=== PATIENT | male | born 1940 | race Caucasian/White ===

== ENCOUNTER 2022-04-02 07:43 | Observation (INO) | payer MEDICARE, BC, SELFPAY ==
[2022-04-02] VITALS (13 sets, daily range): BP systolic 129–180; BP diastolic 67–81; PULSE 54–81; RESP 10–19; TEMP 36.3–36.6; O2SAT 95–100; BMI 29.2
--- NOTE | 2022-04-02 07:59 | W.ED.NEUROSD ---
HPI - Neuro Symptoms/Deficit General: Chief Complaint: Neuro Symptoms/Deficit Stated Complaint: stroke like symtoms Time Seen by Provider: 04/02/22 07:59 History of Present Illness: 81-year-old male presenting today with right-sided weakness. Patient notes sudden onset of right weakness 1 hour before arrival. Patient was recently diagnosed with a stroke 20 days ago. Had right-sided weakness at that time. He notes this is a return if not worsening of that same weakness. During interview patient notes his symptoms have almost completely resolved. And he is returned to baseline. Review of Systems General: Reports: 10 or more systems reviewed and unremarkable except in HPI and below Physical Exam Const: COMMON NORMALS: no acute distress, patient oriented x3 and alert GENERAL APPEARANCE: cooperative ORIENTATION/CONSCIOUSNESS: Yes awake, Yes oriented to person, Yes oriented to place and Yes oriented to time HENMT: COMMON NORMALS: normocephalic, atraumatic, external ears normal, Normal external nose present and moist oral mucous membranes HEAD & SCALP: normal to inspection, normocephalic and atraumatic NOSE: Normal external nose present GENERAL EAR: hearing grossly impaired EXTERNAL EAR: Yes external ears normal Eye: COMMON NORMALS: Equal, round and reactive pupils present, EOMs intact bilaterally, conjunctivae normal and no scleral icterus GENERAL EYE: appearance normal, both eyes and all related structures EYELID: eyelids normal CONJUNCTIVA: Yes conjunctivae normal SCLERA: sclerae normal PUPIL: Yes Equal, round and reactive pupils present Neck/C-Spine: COMMON NORMALS: full ROM, supple and no JVD GENERAL: Yes normal visual inspection Lymph: LYMPHATIC: no lymphadenopathy noted and no lymphedema noted Chest: COMMONS NORMALS: normal inspection of the chest Resp: COMMON NORMALS: normal respiratory effort, No retractions and No use of accessory muscles Cardio: COMMON NORMALS: no JVD, regular rate and regular rhythm RATE: regular rate RHYTHM: regular rhythm GI: COMMON NORMALS: Normal to inspection, nondistended, normoactive bowel sounds present : COMMON NORMALS: Yes no CVA tenderness BLADDER/KIDNEY EXAM: Yes no CVA tenderness Back/Pelvis: COMMON NORMALS: no CVA tenderness and thoracic and lumbar spine normal to inspection Extremity: COMMON NORMALS: normal to inspection, full ROM and capillary refill normal GENERAL: Yes normal exam except as noted Neuro: COMMON NORMALS: patient oriented x3, CN's II-XII intact bilaterally, moves all extremities (4-5 strength in upper lower extremities and the right side), no focal motor deficits, no sensory deficits noted and gait normal SENSORIUM/ORIENTATION: Yes alert, Yes oriented to person, Yes oriented to place and Yes oriented to time Psych: COMMON NORMALS: mental status grossly normal, Normal thought process present, cooperative and normal affect THOUGHT PROCESS: Normal thought process present Skin: COMMON NORMALS: no rashes or lesions noted and no wounds GENERAL SKIN EXAM: no rashes or lesions noted Course Vital Signs: Vital signs: Vital Signs Temperature 97.4 F L 04/02/22 07:45 Pulse Rate 81 04/02/22 07:45 Respiratory Rate 18 04/02/22 07:45 Blood Pressure 180/80 04/02/22 07:45 Pulse Oximetry 99 04/02/22 07:45 Oxygen Delivery Me thod 04/02/22 07:45 MDM - Neuro Symptoms/Deficit Medical Decision Making 81-year-old male presenting today with right-sided weakness. Patient with hard contraindication of stroke including prior stroke in last 3 months. Patient is not a candidate for thrombolytic at this time. CTA head and neck without acute thrombus or embolus. Patient with rapidly resolving symptoms. Spoke to neurology on-call. Who recommended admission to the hospital for observation. Neurology concerned about a possible TIA. Lab Data : 04/02/22 08:10 04/02/22 08:10 Radiology Impressions Head/Neck CTA 04/02/22 08:00 IMPRESSION: No intracranial large vessel stenosis or occlusion. IMPRESSION: No significant stenosis or occlusion seen on the CTA of the neck. Right dominant vertebral artery. REFERENCES: NASCET CRITERIA. The degree of stenosis in the cervical segment of the internal carotid artery is based on NASCET criteria. Normal is no stenosis. Mild is less than 50% stenosis. Moderate is 50-69% stenosis. Severe is 70% to 99% stenosis. Total occlusion is no detectable patent lumen. Laboratory Results WBC 7.8 10^3/uL (4.0-10.0) 04/02/22 08:10 RBC 4.34 10^6/uL (4.1-5.3) 04/02/22 08:10 Hgb 11.4 g/dL (11.7-16.6) L 04/02/22 08:10 Hct 37.1 % (42.0-52.0) L 04/02/22 08:10 MCV 85.5 fl (80-94) 04/02/22 08:10 MCH 26.3 pg (28.0-34.0) L 04/02/22 08:10 MCHC 30.7 g/dL (30.0-36.0) 04/02/22 08:10 RDW 15.7 % (12.1-15.1) H 04/02/22 08:10 Plt Count 339 10^3/cmm (130-400) 04/02/22 08:10 MPV 10.3 fL (7.4-10.4) 04/02/22 08:10 Neut % (Auto) 72.8 % 04/02/22 08:10 Lymph % (Auto) 17.0 % 04/02/22 08:10 [place] % (Auto) 7.5 % 04/02/22 08:10 Eos % (Auto) 1.9 % 04/02/22 08:10 Baso % (Auto) 0.5 % 04/02/22 08:10 Neut # (Auto) 5.71 10^3/uL (1.8-7.7) 04/02/22 08:10 Lymph # (Auto) 1.3 10^3/uL (0.8-4.8) 04/02/22 08:10 [place] # (Auto) 0.6 10^3/uL (0.2-0.9) 04/02/22 08:10 Eos # (Auto) 0.2 10^3/uL (0.0-0.8) 04/02/22 08:10 Baso # (Auto) 0.0 10^3/uL (0.0-0.1) 04/02/22 08:10 Nucleated RBC % (auto) 0 % 04/02/22 08:10 Nucleated RBCs # 0.0 /100WBC 04/02/22 08:10 PT 12.80 SECONDS (12.1-14.9) 04/02/22 08:10 INR 0.93 (0.8-1.2) 04/02/22 08:10 APTT 27.4 SECONDS (23.9-36.7) 04/02/22 08:10 Sodium 140 mmol/L (136-145) 04/02/22 08:10 Potassium 4.8 mmol/L (3.5-5.1) 04/02/22 08:10 Chloride 105 mmol/L (98-107) 04/02/22 08:10 Carbon Dioxide 24 mmol/L (22-29) 04/02/22 08:10 Anion Gap 15.8 (5-19) 04/02/22 08:10 BUN 19 mg/dL (8-23) 04/02/22 08:10 Creatinine 0.9 mg/dL (0.7-1.2) 04/02/22 08:10 GFR Calculation Not Reportable 04/02/22 08:10 Glucose 140 mg/dL (65-115) H 04/02/22 08:10 POC Glucose 139 mg/dL (70-110) H 04/02/22 08:10 Calculated Osmolality 295 mOsm/kg (285-295) 04/02/22 08:10 Calcium 8.7 mg/dL (8.5-10.5) 04/02/22 08:10 Total Bilirubin 0.3 mg/dL (0.15-1.2) 04/02/22 08:10 AST 18 U/L (0-40) 04/02/22 08:10 ALT 11 U/L (0-41) 04/02/22 08:10 Alkaline Phosphatase 97 U/L (40-130) 04/02/22 08:10 Total Protein 6.3 g/dL (6.6-8.7) L 04/02/22 08:10 Albumin 3.7 g/dL (3.5-5.2) 04/02/22 08:10 Globulin 2.6 g/dL (1.3-4.6) 04/02/22 08:10 Urine Color Yellow (Yellow) 04/02/22 09: Urine Appearance Clear (CLEAR) 04/02/22 09:22 Urine pH 5 (5-7) 04/02/22 09:22 Ur Specific [place] 1.015 (1.005-1.030) 04/02/22 09:22 Urine Protein Neg (Negative) 04/02/22 09:22 Urine Glucose (UA) Norm (Normal) 04/02/22 09:22 Urine Ketones Negative (Negative) 04/02/22 09:22 Urine Blood Neg (Negative) 04/02/22 09:22 Urine Nitrate Negative (Negative) 04/02/22 09:22 Urine Bilirubin Neg (Negative) 04/02/22 09:22 Urine Urobilinogen Norm mg/dL (Negative) 04/02/22 09:22 Ur Leukocyte Esterase Negative (Negative) 04/02/22 09:22 Discharge Plan Discharge Patient Disposition: Admitted As Inpatient Clinical Impression: Brain TIA Condition: Stable Coding Level of Care Code ED Operations Support Analyst for Conrad Fwjcarlos Exam Comprehensive
--- NOTE | 2022-04-02 08:00 | CTR_ITS ---
PROCEDURE INFORMATION: Exam: CTA Head With Contrast, Arteriography Exam date and time: 04/02/2022 8:14 AM Age: 81 years old Clinical indication: Stroke-like symptoms; RT upper extremity weakness; Additional info: Acute weakness TECHNIQUE: Imaging protocol: Computed tomographic angiography of the head with contrast. Exam focused on the arteries. 3D rendering (Not supervised by radiologist): MIP and/or 3D reconstructed images were created by the technologist. Radiation optimization: All CT scans at this facility use at least one of these dose optimization techniques: automated exposure control; mA and/or kV adjustment per patient size (includes targeted exams where dose is matched to clinical indication); or iterative reconstruction. Contrast material: OMNI 350; Contrast volume: 95 ml; Contrast route: INTRAVENOUS (IV); COMPARISON: No relevant prior studies available. RADIATION DOSE METRICS: Total DLP (mGy-cm): 581 FINDINGS: ANTERIOR CIRCULATION: Right internal carotid artery: Unremarkable. Intracranial segment is patent with no significant stenosis. No aneurysm. Right middle cerebral artery: Unremarkable. No occlusion or significant stenosis. No aneurysm. Right anterior cerebral artery: Unremarkable. No occlusion or significant stenosis. No aneurysm. Left internal carotid artery: Unremarkable. Intracranial segment is patent with no significant stenosis. No aneurysm. Left middle cerebral artery: Unremarkable. No occlusion or significant stenosis. No aneurysm. Left anterior cerebral artery: Unremarkable. No occlusion or significant stenosis. No aneurysm. POSTERIOR CIRCULATION: Right vertebral artery: Unremarkable. No occlusion or significant stenosis. No aneurysm. Left vertebral artery: Unremarkable. No occlusion or significant stenosis. No aneurysm. Basilar artery: Unremarkable. No occlusion or significant stenosis. No aneurysm. Right posterior cerebral artery: Unremarkable. No occlusion or significant stenosis. No aneurysm. Left posterior cerebral artery: Unremarkable. No occlusion or significant stenosis. No aneurysm. Brain: No definite mass, mass effect, or midline shift. No abnormal post contrast enhancement. Cerebral ventricles: No ventriculomegaly. Bones/joints: No acute fracture. Soft tissues: Unremarkable. The paranasal sinuses are clear. PROCEDURE INFORMATION: Exam: CTA Neck With Contrast Exam date and time: 04/02/2022 8:14 AM Age: 81 years old Clinical indication: Stroke-like symptoms; RT upper extremity weakness; Additional info: Acute weakness TECHNIQUE: Imaging protocol: Computed tomographic angiography of the neck with contrast. 3D rendering (Not supervised by radiologist): MIP and/or 3D reconstructed images were created by the technologist. Radiation optimization: All CT scans at this facility use at least one of these dose optimization techniques: automated exposure control; mA and/or kV adjustment per patient size (includes targeted exams where dose is matched to clinical indication); or iterative reconstruction. Contrast material: OMNI 350; Contrast volume: 95 ml; Contrast route: INTRAVENOUS (IV); COMPARISON: No relevant prior studies available. RADIATION DOSE METRICS: Total DLP (mGy-cm): 581 FINDINGS: Right common carotid artery: No stenosis. No dissection or occlusion. Right internal carotid artery: [id number] calcified bulb plaque. No stenosis of the extracranial segment. No dissection or occlusion. Right external carotid artery: No occlusion or stenosis of the origin. Left common carotid artery: No stenosis. No dissection or occlusion. Left internal carotid artery: Xfjy-ri-[place] calcified bulb plaque. No stenosis of the extracranial segment. No dissection or occlusion. Left external carotid artery: No occlusion or stenosis of the origin. Right vertebral artery: Right dominant vertebral artery is seen. No stenosis. No dissection or occlusion. Left vertebral artery: No stenosis. No dissection or occlusion. Other: The visualized subclavian arteries are patent. Soft tissues: Normal. No significant soft tissue swelling. Bones/joints: No acute fracture. The patient is edentulous. CT/CT angio headneck* [id number] IMPRESSION: No intracranial large vessel stenosis or occlusion. IMPRESSION: No significant stenosis or occlusion seen on the CTA of the neck. Right dominant vertebral artery. REFERENCES: NASCET CRITERIA. The degree of stenosis in the cervical segment of the internal carotid artery is based on NASCET criteria. Normal is no stenosis. Mild is less than 50% stenosis. Moderate is 50-69% stenosis. Severe is 70% to 99% stenosis. Total occlusion is no detectable patent lumen.
--- NOTE | 2022-04-02 08:00 | ECG_ITS ---
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 Measurements Intervals [place] Rate: 62 P: 61 NM: 229 QRS: 62 QRSD: 90 T: 76 QT: 408 QTc: 415 Interpretive Statements SINUS RHYTHM WITH FIRST DEGREE AV BLOCK No previous ECG available for comparison Electronically Signed On 04-02-2022 13:03:03 CDT by Lupe Ruano M.D. [id number]
[2022-04-02 08:15] LABS: Glucose Point of Care 139 mg/dL (70-110)
[2022-04-02 08:21] LABS: Basophils % 0.5 %; Eosinophils # 0.2 10^3/uL (0.0-0.8); Eosinophils % 1.9 %; Hematocrit 37.1 % (42.0-52.0); Hemoglobin 11.4 g/dL (11.7-16.6); Lymphocytes # 1.3 10^3/uL (0.8-4.8); Mean Corpuscular HGB Conc 30.7 g/dL (30.0-36.0); Mean Corpuscular Hemoglobin 26.3 pg (28.0-34.0); Mean Corpuscular Volume 85.5 fl (80-94); Mean Platelet Volume 10.3 fL (7.4-10.4); Monocytes # 0.6 10^3/uL (0.2-0.9); Monocytes % 7.5 %; Neutrophils # 5.71 10^3/uL (1.8-7.7); Neutrophils % 72.8 %; Nucleated Red Blood Cells % 0 %; Platelet Count 339 10^3/cmm (130-400); Red Blood Count 4.34 10^6/uL (4.1-5.3); Red Cell Distribution Width 15.7 % (12.1-15.1); White Blood Count 7.8 10^3/uL (4.0-10.0)
[2022-04-02] MEDS: iohexol 350 mg/mL 100 mL Btl IV (08:29)
[2022-04-02 08:34] LABS: INR 0.93 (0.8-1.2)
[2022-04-02 08:35] LABS: Partial Thromboplastin Time 27.4 SECONDS (23.9-36.7)
[2022-04-02 08:43] LABS: Alanine Aminotransferase 11 U/L (0-41); Albumin Level 3.7 g/dL (3.5-5.2); Alkaline Phosphatase 97 U/L (40-130); Anion Gap 15.8 (5-19); Aspartate Amino Transferase 18 U/L (0-40); Blood Urea Nitrogen 19 mg/dL (8-23); Calcium 8.7 mg/dL (8.5-10.5); Carbon Dioxide 24 mmol/L (22-29); Chloride 105 mmol/L (98-107); Globulin 2.6 g/dL (1.3-4.6); Glucose 140 mg/dL (65-115); Osmolality Calculated 295 mOsm/kg (285-295); Potassium 4.8 mmol/L (3.5-5.1); Sodium 140 mmol/L (136-145); Total Bilirubin 0.3 mg/dL (0.15-1.2); Total Protein 6.3 g/dL (6.6-8.7)
[2022-04-02 09:31] LABS: Add Urine Microscopic? NO; Charge for UA Resulting for Rev
[2022-04-02 09:41] LABS: Bilirubin Urine Neg (Negative); Blood Urine Neg (Negative); Glucose Urine UA Norm (Normal); Ketones Urine Negative (Negative); Leukocyte Esterase Urine Negative (Negative); Nitrate Urine Negative (Negative); Protein Urine Neg (Negative); Specific Gravity, Urine 1.015 (1.005-1.030); Urine Appearance Clear (CLEAR); Urine Color Yellow (Yellow); Urobilinogen Urine Norm (Negative); pH Urine 5 (5-7)
[2022-04-02 09:47] LABS: Amphetamines Screen Urine Negative (Negative); Barbiturates Screen Urine Negative (Negative); Benzodiazepines Screen Urine Negative (Negative); Cocaine Screen Urine Negative (Negative); Opiate Screen Urine Negative (Negative); PCP Screen Urine Negative (Negative); THC Screen Urine Negative (Negative)
--- NOTE | 2022-04-02 12:15 | USCV_ITS ---
Joshua Walton Age: 81 Gender: M : 1940 Exam Date: 04/02/2022 13:16 Ordering Phys: Rene Giron MD Technologist: Yolanda Nova Exam Location: [facility] – [place] Indication: TIA BP: 166 / 81 HR: 56 Rhythm: Sinus Technical Quality: Adequate MEASUREMENTS (Male / Female) Normal Values 2D ECHO LV Diastolic Diameter PLAX 3.7 cm 4.2 - 5.9 / 3.9 - 5.3 cm LV Systolic Diameter PLAX 1.8 cm LV Chamber Size 3.3 cm IVS Diastolic Thickness 1.5 cm 0.6 - 1.0 / 0.6 - 0.9 cm IVS Systolic Thickness 1.2 cm LVPW Diastolic Thickness 1.3 cm 0.6 - 1.0 / 0.6 - 0.9 cm LVPW Systolic Thickness 1.6 cm RV Chamber Size 2.0 cm LVOT Diameter 2.1 cm LV Ejection Fraction 2D Teich 83.0 % LV Ejection Fraction MOD 2C 52.3 % LV Ejection Fraction 2C AL 59.0 % LA Diameter 4.1 cm LA Width 2.4 cm LA Height 3.7 cm RA Width 2.7 cm RA Height 3.7 cm Aorta at Sinotubular Diameter 2.9 cm IVC Diameter 1.3 cm M-MODE Aortic Annulus Diameter 3.4 cm LA Ao Ratio MM 1.6 MV E Point Septal Separation 0.5 cm DOPPLER AV Peak Velocity 104.0 cm/s LVOT Peak Velocity 81.0 cm/s AV Area Cont Eq vti 3.1 cm squared AV Area Cont Eq pk 2.6 cm squared MV Area PHT 2.4 cm squared Mitral E to A Ratio 1.1 MV E' Velocity 115.0 cm/s TR Peak Velocity 269.4 cm/s TR Peak Gradient 29.0 mmHg TR Mean Velocity 204.9 cm/s TR Mean Gradient 18.7 mmHg TR Velocity Time Integral 110.3 cm TV Peak E Velocity 50.0 cm/s Right Atrial Pressure 3.0 mmHg Pulmonary Artery Systolic Pressu 32.0 mmHg PV Peak Velocity 76.0 cm/s RV Acceleration Time 0.4 s RV Ejection Time 0.2 s RV AcT/ET 2.4 FINDINGS Left Ventricle Normal left ventricular size, systolic function and wall thickness, with no regional wall motion abnormalities. Left ventricular ejection fraction is estimated at 60 -65 %. Normal diastolic filling pattern. Right Ventricle Normal right ventricular size and systolic function. Right ventricular systolic pressure 34 mmHg. Right Atrium Normal right atrial size. Left Atrium Normal left atrial size. Mitral Valve Moderate mitral annular calcification. No mitral valve stenosis. Trace mitral valve regurgitation. Aortic Valve Structurally normal trileaflet aortic valve. No aortic valve stenosis. No aortic valve regurgitation. Tricuspid Valve Structurally normal tricuspid valve. No tricuspid valve stenosis. Trace tricuspid valve regurgitation. Pulmonic Valve Structurally normal pulmonic valve. No pulmonary valve stenosis. Trace pulmonary valve regurgitation. Pericardium No pericardial effusion. Aorta Normal size aortic root and proximal ascending aorta. IVC Normal IVC dimension with >50% respiratory change of the inferior vena cava. CONCLUSIONS 1. Normal left ventricular size, systolic function and wall thickness, with no regional wall motion abnormalities. Left ventricular ejection fraction is estimated at 60 -65 %. Normal diastolic filling pattern. 2. Normal right ventricular size and systolic function. 3. Upper normal pulmonary artery pressure. 4. Trace mitral and tricuspid valve regurgitation. 5. No prior similar studies to compare. Lupe Ruano MD (Electronically Signed) Final Date: 03 April 2022 13:21 S
--- NOTE | 2022-04-02 12:34 | P.HP_ITS ---
Providers/Chief Complaint Admitting Physician: Rene Giron MD Chief Complaint: stroke like symtoms History of Present Illness Joshua Walton is a 81 year old male with past medical history of hypertension diabetes, history of recent CVA, with minimal residual right-sided weakness, came in today with chief complaint of acute onset of Profound right-sided weakness, 1 hour prior to arrival to the ER, when he was examined in the ER at that time weakness had completely resolved.He was not a tPA candidate. When I examined the patient there was no gross motor or sensory deficit.Speech was normal, denied any difficulty swallowing Pertinent imaging studies done in the ER includes: CT head without contrast: No acute intracranial pathology CTA head and neck: No flow-limiting stenosis seen EKG: SR with first-degree AV block Pertinent labs: WBC 7.8, H&H 11 and 37, PLT : 339 , serum sodium 140, serum potassium 4.8, BUN and serum creatinine 19 and 0.9, random blood sugar 140, Review of Systems General: Reports: 10 or more systems reviewed and unremarkable except in HPI and below Const: Denies: fever(s), chills, body aches, change in appetite or diaphoresis Card: Denies: palpitations, edema, swelling of feet/ankles, dyspnea on exertion, orthopnea or leg pain with exertion Resp: Denies: dyspnea, productive cough, wheezing or pain on inspiration GI: Denies: abdominal pain, nausea, vomiting, diarrhea or constipation : Denies: flank pain or difficulty urinating Musc: Denies: back pain, extremity pain or extremity swelling Neuro: Denies: headache(s), difficulty walking or confusion Medications/Allergies Home Medications Medication Instructions Recorded Confirmed Last Taken Type aspirin 81 mg chewable tablet 81 mg PO DAILY 04/02/22 04/02/22 04/02/22 History atorvastatin 80 mg tablet 80 mg PO DAILY 04/02/22 04/02/22 04/01/22 History clopidogrel 75 mg tablet 75 mg PO DAILY 04/02/22 04/02/22 04/02/22 History furosemide 20 mg tablet 20 mg PO DAILY 04/02/22 04/02/22 04/02/22 History glipizide 5 mg tablet See Rx Instructions .Route .COMPLEX 04/02/22 04/02/22 04/02/22 History insulin NPH isoph U-100 human 100 See Rx Instructions .Route .COMPLEX 04/02/22 04/02/22 04/02/22 History unit/mL subcutaneous suspension (Humulin N NPH U-100 Insulin (isophane susp)) lisinopril 10 mg tablet 10 mg PO DAILY 04/02/22 04/02/22 04/02/22 History metformin 500 mg tablet,extended 1,000 mg PO BID 04/02/22 04/02/22 04/02/22 History release 24 hr Allergies Allergy/AdvReac Type Severity Reaction Status Date / Time No Known Allergies Allergy Verified 04/02/22 07:45 Vitals/I&O/Wt Last Vital Signs Temp 97.4 F L 04/02/22 07:45 Pulse 65 04/02/22 12:00 Resp 18 04/02/22 12:00 BP 166/81 04/02/22 12:00 Pulse Ox 99 04/02/22 12:00 O2 Del Method 04/02/22 07:45 Weight last 48 hrs Weight 87.09 kg Physical Exam Const: COMMON NORMALS: patient oriented x3 HENMT: COMMON NORMALS: normocephalic and atraumatic HEAD & SCALP: normocephalic and atraumatic Chest: CHEST: Yes Symmetrical chest wall rise Resp: COMMON NORMALS: normal respiratory effort, No retractions, No use of accessory muscles and clear to auscultation bilaterally EFFORT & INSPECTION: Yes symmetric chest movement AUSCULTATION: clear to auscultation bilaterally Cardio: COMMON NORMALS: regular rate, regular rhythm, S1 normal heart sound present, S2 normal heart sound present, No gallops present (Cardio), No murmurs present (Cardio), No rub (Cardio) and Peripheral pulses 2+ throughout RATE: regular rate RHYTHM: regular rhythm HEART SOUNDS: S1 normal heart sound present and S2 normal heart sound present PERIPHERAL PULSES: Peripheral pulses 2+ throughout GI: COMMON NORMALS: Normal to inspection, nondistended, normoactive bowel sounds present, Soft to palpation, non-tender, No hepatosplenomegaly present and no masses AUSCULTATION: Yes normoactive bowel sounds PALPATION: Yes Soft to palpation and Yes No hepatosplenomegaly present RECTAL EXAM: Yes deferred Extremity: COMMON NORMALS: no clubbing, cyanosis or edema and no pedal edema Neuro: COMMON NORMALS: patient oriented x3 Data : 04/02/22 08:10 04/02/22 08:10 A&P Assessment and plan (1) TIA (transient ischemic attack): Status: Acute Plan Joshua Walton is a 81 year old male with past medical history of hypertension diabetes, history of recent CVA, with minimal residual right-sided weakness, came in today with chief complaint of acute onset of Profound right-sided weakness, 1 hour prior to arrival to the ER, when he was examined in the ER at that time weakness had completely resolved.He was not a tPA candidate. When I examined the patient there was no gross motor or sensory deficit.Speech was normal, denied any difficulty swallowing. Assessment: TIA History of CVA Hypertension Diabetes Plan: Follow 2D echo Continue telemetry monitoring Continue aspirin Plavix statin Permissive hypertension PT OT speech evaluation Patient will need event monitor on discharge, to rule out possibility of unde rlying A. fib. Continue low-dose sliding scale insulin, monitor fingerstick glucose, carbohydrate consistent diet. CODE STATUS: Full code DVT prophylaxis: On Lovenox Attestations Medical Necessity Statement*: Patient is to be in hospital for management of TIA. Coding Level of Care Code Acute Electrogalvanizing Machine Operator for Conrad Fwd Exam Comprehensive Diagnoses TIA (transient ischemic attack) G45.9
[2022-04-02] MEDS: aspirin 81 mg Chew Tablet PO (13:06)
[2022-04-02 16:48] LABS: Glucose Point of Care 189 mg/dL (70-110)
[2022-04-02] MEDS: insulin lispro 100 unit/1 mL SUBCUT (18:07)
[2022-04-02 21:39] LABS: Glucose Point of Care 281 mg/dL (70-110)
[2022-04-03] VITALS (7 sets, daily range): BP systolic 122–193; BP diastolic 66–96; PULSE 64–72; RESP 12–18; TEMP 36.6–36.8; O2SAT 95–97
[2022-04-03 05:33] LABS: Basophils # 0.1 10^3/uL (0.0-0.1); Basophils % 0.7 %; Eosinophils # 0.2 10^3/uL (0.0-0.8); Eosinophils % 2.6 %; Hematocrit 37.3 % (42.0-52.0); Hemoglobin 11.3 g/dL (11.7-16.6); Lymphocytes # 1.5 10^3/uL (0.8-4.8); Lymphocytes % 20.7 %; Mean Corpuscular HGB Conc 30.3 g/dL (30.0-36.0); Mean Corpuscular Volume 85.7 fl (80-94); Mean Platelet Volume 10.3 fL (7.4-10.4); Monocytes # 0.6 10^3/uL (0.2-0.9); Monocytes % 8.6 %; Neutrophils # 4.69 10^3/uL (1.8-7.7); Nucleated Red Blood Cells % 0 %; Platelet Count 310 10^3/cmm (130-400); Red Blood Count 4.35 10^6/uL (4.1-5.3); Red Cell Distribution Width 15.6 % (12.1-15.1)
[2022-04-03 05:44] LABS: INR 0.98 (0.8-1.2)
[2022-04-03 05:45] LABS: Partial Thromboplastin Time 27.6 SECONDS (23.9-36.7)
[2022-04-03] MEDS: enoxaparin 40 mg/0.4 mL Syringe SUBCUT (06:02)
[2022-04-03 06:05] LABS: Alanine Aminotransferase 10 U/L (0-41); Albumin Level 3.6 g/dL (3.5-5.2); Alkaline Phosphatase 87 U/L (40-130); Anion Gap 11.4 (5-19); Aspartate Amino Transferase 15 U/L (0-40); Blood Urea Nitrogen 19 mg/dL (8-23); Calcium 8.7 mg/dL (8.5-10.5); Carbon Dioxide 27 mmol/L (22-29); Chloride 105 mmol/L (98-107); Globulin 2.7 g/dL (1.3-4.6); Glucose 214 mg/dL (65-115); Magnesium 1.7 mg/dL (1.7-2.3); Osmolality Calculated 297 mOsm/kg (285-295); Potassium 4.4 mmol/L (3.5-5.1); Sodium 139 mmol/L (136-145); Thyroid Stimulating Hormone 1.38 uIU/mL (0.27-4.20); Total Bilirubin 0.2 mg/dL (0.15-1.2); Total Protein 6.3 g/dL (6.6-8.7)
[2022-04-03 06:21] LABS: Glucose Point of Care 204 mg/dL (70-110)
[2022-04-03] MEDS: insulin lispro 100 unit/1 mL SUBCUT ×2 (08:33→12:04)
[2022-04-03] MEDS: clopidogrel 75 mg Tablet PO (08:33)
[2022-04-03] MEDS: atorvastatin 40 mg Tablet 80 MG PO (08:33)
[2022-04-03] MEDS: aspirin 81 mg Chew Tablet PO (08:34)
--- NOTE | 2022-04-03 11:03 | PC.CHAP ---
Pastoral Care Encounter/Spiritual Assessment Type of Contact [] Declined artificial stone setter visit [] Patient/Family/Request visit [] Outpatient visit [] Follow-up visit [] Physician referral [] Code/Alert [x] Routine visit [] Staff referral [] Actively dying [] Patient sleeping [] Family support [] [] Out of room [] Palliative care [] [x] Receiving care in room [] Pre-surgical visit [] Trauma [] Long length of stay [] ICU visit [] Other: Relational/Emotional Strength [] Patient feels connected with others/family/visitors/staff [] Distress [] Loneliness/isolation [] Abandonment Spirituality of Patient [] Person of [place] [] Attends Jainism of their [place] [] Believes in Prayer [] Reads Bible or Jain materials [] There are Spiritual issues to be addressed Sample Checker Interventions [] Prayer [] Active listening [] Non-anxious presence [] Spiritual/emotional support [] Crisis/trauma care [] Spiritual counseling [] Bereavement support [] Provided bereavement packet [] Provided Bible/devotional materials [] Provided toy/stuffed animal, coloring book to patient or family member [] Provided Communion [] Anointing/[place] [] Salvation [] Completed spiritual assessment [] Other: Impact on Illness or Injury [] Angry [] Fearful [] Anxious [] Often cries [] Exhaustion [] Unable to work [] Unable to attend spiritism [] Unable to walk/stand [] Unable to read [] Unable to drive [] Unable to eat/drink [] Unable to sleep [] Unable to be with family [] Patient intubated [] Other: Summary Time spent with patient
--- NOTE | 2022-04-03 11:11 | PC.OT ---
Pt. refused OT treatment today, stating he would work after Labor Day. C/o being tired from going to CT scan.
[2022-04-03 11:39] LABS: Glucose Point of Care 324 mg/dL (70-110)
[2022-04-03] MEDS: lisinopril 10 mg Tablet PO (13:04)
[2022-04-03] MEDS: FUROsemide 20 mg Tablet PO (13:04)
--- NOTE | 2022-04-03 13:12 | P.DS_ITS ---
Discharge Providers Date of Admission: 04/02/22 12:09 Date of Discharge: April 03, 2022 Attending Provider at Admission: Rene Giron MD Attending Provider at Discharge: Gautam Alcantara MD Diagnoses at Discharge Discharge Diagnosis (1) TIA (transient ischemic attack): Details from hospital stay: Symptoms resolved Status: Acute (2) Diabetes: Details from hospital stay: Glipizide was not given on admission and blood sugars have been high. Resume glipizide at home dose. Hold metformin until 04/04/2022 due to contrast study Status: Acute (3) Hypertension: Details from hospital stay: Increase lisinopril to 10 mg twice a day Status: Acute (4) Hyperlipidemia associated with type 2 diabetes mellitus: Details from hospital stay: Resume atorvastatin Status: Acute Reason for Visit Reason for Visit: stroke like symtoms Brief History: Patient came in with TIA symptoms which basically resolved prior to leaving the ER. Hospital Course Hospital Course Patient has not had any more TIA symptoms however his lisinopril was not continued due to initial desire for permissive hypertension. Additionally his metformin held due to contrast study. He had a lower blood sugar so his glipizide was not continued but was restarted today due to elevated blood sugar. He is anxious to go home today. I have asked the nurse to give him lisinopril 10 mg now and we will discharge him provided he is still doing well and blood sugar is below 175 systolic prior to discharge Physical Exam Narrative: General well-developed well-nourished male in no acute cardiopulmonary stress CV regular rate and rhythm Lungs clear to auscultation bilateral Abdomen positive bowel sounds soft nontender Calves no tenderness cords pedal edema Motor strength 5/5 bilateral biceps triceps handgrips and straight leg lifting Discharge Data Studies Completed and Pending Completed Studies During Hospitalization Category Date Time Status CT angio headneck* [id number] Stat Cat Scan 04/02/22 08:00 Completed Pending at discharge Category Date Time Status Complete Blood Count w/Auto AM LABS Lab 04/04/22 04:00 Ordered Complete Blood Count w/Auto AM LABS Lab 04/05/22 04:00 Ordered Comprehensive Metabolic Panel AM LABS Lab 04/04/22 04:00 Ordered Comprehensive Metabolic Panel AM LABS Lab 04/05/22 04:00 Ordered CV. echo complete* [id number] Routine Ultrasound 04/02/22 12:15 Taken Radiology Impressions Head/Neck CTA 04/02/22 08:00 IMPRESSION: No intracranial large vessel stenosis or occlusion. IMPRESSION: No significant stenosis or occlusion seen on the CTA of the neck. Right dominant vertebral artery. REFERENCES: NASCET CRITERIA. The degree of stenosis in the cervical segment of the internal carotid artery is based on NASCET criteria. Normal is no stenosis. Mild is less than 50% stenosis. Moderate is 50-69% stenosis. Severe is 70% to 99% stenosis. Total occlusion is no detectable patent lumen. Laboratory Results WBC 7.0 10^3/uL (4.0-10.0) 04/03/22 05:05 RBC 4.35 10^6/uL (4.1-5.3) 04/03/22 05:05 Hgb 11.3 g/dL (11.7-16.6) L 04/03/22 05:05 Hct 37.3 % (42.0-52.0) L 04/03/22 05:05 MCV 85.7 fl (80-94) 04/03/22 05:05 MCH 26.0 pg (28.0-34.0) L 04/03/22 05:05 MCHC 30.3 g/dL (30.0-36.0) 04/03/22 05:05 RDW 15.6 % (12.1-15.1) H 04/03/22 05:05 Plt Count 310 10^3/cmm (130-400) 04/03/22 05:05 MPV 10.3 fL (7.4-10.4) 04/03/22 05:05 Neut % (Auto) 67.0 % 04/03/22 05:05 Lymph % (Auto) 20.7 % 04/03/22 05:05 [place] % (Auto) 8.6 % 04/03/22 05:05 Eos % (Auto) 2.6 % 04/03/22 05:05 Baso % (Auto) 0.7 % 04/03/22 05:05 Neut # (Auto) 4.69 10^3/uL (1.8-7.7) 04/03/22 05:05 Lymph # (Auto) 1.5 10^3/uL (0.8-4.8) 04/03/22 05:05 [place] # (Auto) 0.6 10^3/uL (0.2-0.9) 04/03/22 05:05 Eos # (Auto) 0.2 10^3/uL (0.0-0.8) 04/03/22 05:05 Baso # (Auto) 0.1 10^3/uL (0.0-0.1) 04/03/22 05:05 Nucleated RBC % (auto) 0 % 04/03/22 05:05 Nucleated RBCs # 0.0 /100WBC 04/03/22 05:05 PT 13.30 SECONDS (12.1-14.9) 04/03/22 05:05 INR 0.98 (0.8-1.2) 04/03/22 05:05 APTT 27.6 SECONDS (23.9-36.7) 04/03/22 05:05 Sodium 139 mmol/L (136-145) 04/03/22 05:05 Potassium 4.4 mmol/L (3.5-5.1) 04/03/22 05:05 Chloride 105 mmol/L (98-107) 04/03/22 05:05 Carbon Dioxide 27 mmol/L (22-29) 04/03/22 05:05 Anion Gap 11.4 (5-19) 04/03/22 05:05 BUN 19 mg/dL (8-23) 04/03/22 05:05 Creatinine 0.9 mg/dL (0.7-1.2) 04/03/22 05:05 GFR Calculation Not Reportable 04/03/22 05:05 Glucose 214 mg/dL (65-115) H 04/03/22 05:05 POC Glucose 324 mg/dL (70-110) H 04/03/22 11:10 Calculated Osmolality 297 mOsm/kg (285-295) H 04/03/22 05:05 Calcium 8.7 mg/dL (8.5-10.5) 04/03/22 05:05 Magnesium 1.7 mg/dL (1.7-2.3) 04/03/22 05:05 Total Bilirubin 0.2 mg/dL (0.15-1.2) 04/03/22 05:05 AST 15 U/L (0-40) 04/03/22 05:05 ALT 10 U/L (0-41) 04/03/22 05:05 Alkaline Phosphatase 87 U/L (40-130) 04/03/22 05:05 Total Protein 6.3 g/dL (6.6-8.7) L 04/03/22 05:05 Albumin 3.6 g/dL (3.5-5.2) 04/03/22 05:05 Globulin 2.7 g/dL (1.3-4.6) 04/03/22 05:05 TSH 1.38 uIU/mL (0.27-4.20) 04/03/22 05:05 Urine Color Yellow (Yellow) 04/02/22 09: Urine Appearance Clear (CLEAR) 04/02/22 09:22 Urine pH 5 (5-7) 04/02/22 09:22 Ur Specific [place] 1.015 (1.005-1.030) 04/02/22 09:22 Urine Protein Neg (Negative) 04/02/22 09:22 Urine Glucose (UA) Norm (Normal) 04/02/22 09:22 Urine Ketones Negative (Negative) 04/02/22 09:22 Urine Blood Neg (Negative) 04/02/22 09:22 Urine Nitrate Negative (Negative) 04/02/22 09:22 Urine Bilirubin Neg (Negative) 04/02/22 09:22 Urine Urobilinogen Norm mg/dL (Negative) 04/02/22 09:22 Ur Leukocyte Esterase Negative (Negative) 04/02/22 09:22 Urine Opiates Screen Negative ng/mL (Negative) 04/02/22 09:22 Ur Barbiturates Screen Negative ng/mL (Negative) 04/02/22 09:22 Ur Phencyclidine Scrn Negative ng/mL (Negative) 04/02/22 09:22 Ur Amphetamines Screen Negative ng/mL (Negative) 04/02/22 09:22 U Benzodiazepines Scrn Negative ng/mL (Negative) 04/02/22 09:22 Urine Cocaine Screen Negative ng/mL (Negative) 04/02/22 09:22 U Marijuana (THC) Screen Negative ng/mL (Negative) 04/02/22 09:22 Vitals Last Vital Signs Temp 98.1 F 04/03/22 11:54 Pulse 72 04/03/22 11:54 Resp 16 04/03/22 11:54 BP 193/96 04/03/22 11:54 Pulse Ox 97 04/03/22 11:54 O2 Del Method 04/03/22 11:54 Discharge Plan Discharge Patient Disposition: Home Condition: Stable Prescriptions: New lisinopril 10 mg tablet 10 mg PO BID Qty: 60 1RF Continued atorvastatin 80 mg tablet 80 mg PO DAILY clopidogrel 75 mg tablet 75 mg PO DAILY furosemide 20 mg tablet 20 mg PO DAILY glipizide 5 mg tablet See Rx Instructions .ROUTE .COMPLEX Rx Instructions: 10 mg orally in the morning / 5 mg orally in the evening Humulin N NPH U-100 Insulin 100 unit/mL suspension See Rx Instructions .ROUTE .COMPLEX Rx Instructions: per sliding scale aspirin 81 mg Tablet,Chewable 81 mg PO DAILY Held metformin 500 mg tablet extended release 24 hr 1,000 mg PO BID Hold Instructions: Resume on 04/04/22. Discontinued lisinopril 10 mg Tablet 10 mg PO DAILY Discharge Orders: Discharge Order (Routine); Ordered 04/03/22 Ordered By: Gautam Alcantara Discharge Diet: Diabetic and Low Salt Discharge Activity: Increase activity as tolerated Patient Instructions: Opioid Safety Activity Restrictions/Additional Instructions: hold metformin until 04/04/2022 evening due to IV contrast test Discharge Attestations Time Spent in Discharge Care*: greater than 30 min Quality Metrics Clinical Quality Measures [ No reported AMI, CVA or VTE this stay] Coding Level of Care Code Acute Chg FW DC note History Detailed Exam Detailed Medical Decision Making High Complexity Diagnoses TIA (transient ischemic attack) G45.9 Diabetes E11.9 Hypertension I10 Hyperlipidemia associated with type 2 diabetes mellitus E11.69; E78.5 Time Spent (min) 35
== END 2022-04-03 15:00 | disposition home or self-care (01) ==
LOC: ER 09:55 → MEDSURG 13:09
PROVIDERS: Admitting Provider Internal Medicine; Emergency Provider Emergency Medicine; Visit Provider Internal Medicine
DX: G45.9 Transient cerebral ischemic attack, unspecified (principal); E11.9 Type 2 diabetes mellitus without complications; I10 Essential (primary) hypertension; E78.5 Hyperlipidemia, unspecified; I44.0 Atrioventricular block, first degree; Z79.82 Long term (current) use of aspirin; Z79.4 Long term (current) use of insulin; Z79.84 Long term (current) use of oral hypoglycemic drugs
CPT/HCPCS: 36415; 36416; 70496; 70498; 80053; 80306; 81003; 82962; 83735; 84443; 85025; 85610; 85730; 92610; 93005; 93306; 94760; 96360; 96361; 96372; 97161; 97165; 99285; G0378; J1650; J1815; Q9967